=== PATIENT | male | born 1985 | race Caucasian/White ===

== ENCOUNTER 2022-05-31 09:42 | Emergency (ER) | payer SELFPAY ==
[2022-05-31] MEDS ORDERED: METOCLOPRAMIDE 10 MG/2mL INJ ONE (10:14)
[2022-05-31] MEDS ORDERED: LIDOCAINE VISCOUS 2% SOLN 15 ML UDC ONE (10:14)
[2022-05-31] MEDS ORDERED: KETOROLAC 30 MG/ML INJ ONE (10:14)
[2022-05-31] MEDS ORDERED: FAMOTIDINE 20 MG TAB ONE (10:14)
[2022-05-31] MEDS ORDERED: MAGNES/ALUMIN/SIMET 30ML UCUP ONE (10:14)
[2022-05-31] MEDS ORDERED: NA CHLORIDE 0.9% 1,000 ML ONE (10:15)
[2022-05-31 10:28] LABS: Absolute Lymphocytes (CBC) 2.5 K/uL (0.7-4.9); Hematocrit 46.4 % (39.6-49.0); Lymphocytes % 33.3 % (15.3-44.8); MCV 85.8 fL (80-100); MPV 7.6 fL (7.6-11.3); RBC Red Blood Cell Count 5.41 M/uL (4.33-5.43)
[2022-05-31 10:41] LABS: Albumin 3.9 g/dL (3.4-5.0); Bilirubin Total 0.9 mg/dL (0.2-1.0); Potassium 4.1 mmol/L (3.5-5.1)
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
[2022-05-31] MEDS ORDERED: dexAMETHasone 10 MG/ML VIAL ONE (12:27)
[2022-05-31 12:46] VITALS: TEMP 98
[2022-05-31 12:49] VITALS: O2SAT 97
[2022-05-31 12:51] VITALS: BP 105/63
== END 2022-05-31 12:30 | disposition home or self-care (01) ==
LOC: ER 09:42
DX: R51.9 Headache, unspecified (principal); R11.0 Nausea; F17.210 Nicotine dependence, cigarettes, uncomplicated; Z88.5 Allergy status to narcotic agent; Z20.822 Contact with and (suspected) exposure to COVID-19
CPT/HCPCS: 36415; 80053; 85025; 96361; 96374; 96375; 99284; J1100; J2765; J7030; U0003